=== PATIENT | male | born 1960 | race Caucasian/White ===

== ENCOUNTER 2021-02-19 10:23 | Outpatient (CLI) | payer BC, OTHER ==
[2021-02-20 01:30] LABS: SARS-CoV-2 PCR by NAA Not Detected (NotDetected)
== END 2021-02-19 10:24 | disposition home or self-care (01) ==
LOC: CSHLAB 10:23
PROVIDERS: ATTEND Internal Medicine Pulmonary Disease
DX: Z20.822 Contact with and (suspected) exposure to COVID-19 (principal)
CPT/HCPCS: U0003; U0005

== ENCOUNTER 2021-09-01 09:56 | Outpatient (CLI) | payer OTHER | END 2021-09-01 09:57 | disposition home or self-care (01) | LOC: CSHRAD 09:56 | PROVIDERS: ATTEND Chiropractor | DX: M19.90 Unspecified osteoarthritis, unspecified site (principal); M19.071 Primary osteoarthritis, right ankle and foot ==

== ENCOUNTER 2021-10-28 09:11 | Outpatient (CLI) | payer BC ==
[2021-10-28 23:14] LABS: SARS-CoV-2 PCR by NAA Not Detected (NotDetected)
== END 2021-10-28 09:12 | disposition home or self-care (01) ==
LOC: CSHLAB 09:11
PROVIDERS: ATTEND Internal Medicine
DX: Z20.822 Contact with and (suspected) exposure to COVID-19 (principal)
CPT/HCPCS: U0003; U0005

== ENCOUNTER 2021-11-02 07:57 | Outpatient (CLI) | payer BC | END 2021-11-02 07:58 | disposition home or self-care (01) | LOC: CSHCT 07:57 | PROVIDERS: ATTEND Internal Medicine | DX: J84.9 Interstitial pulmonary disease, unspecified (principal); J84.10 Pulmonary fibrosis, unspecified; R94.2 Abnormal results of pulmonary function studies | CPT/HCPCS: 71250; 94010; 94726; 94729; 94760 ==

== ENCOUNTER 2023-04-05 15:06 | Outpatient (CLI) | payer OTHER | END 2023-04-05 15:07 | disposition home or self-care (01) | LOC: CSHCP 15:06 | PROVIDERS: ATTEND Internal Medicine | DX: J84.9 Interstitial pulmonary disease, unspecified (principal); J98.4 Other disorders of lung | CPT/HCPCS: 94010; 94726; 94729; 94760 ==

== ENCOUNTER 2023-05-10 09:31 | Outpatient (CLI) | payer OTHER | END 2023-05-10 09:32 | disposition home or self-care (01) | LOC: CSHCT 09:31 | PROVIDERS: ATTEND Internal Medicine | DX: J61 Pneumoconiosis due to asbestos and other mineral fibers (principal) | CPT/HCPCS: 71250 ==

== ENCOUNTER 2025-02-26 10:14 | Outpatient (CLI) | payer OTHER | END 2025-02-26 10:15 | disposition home or self-care (01) | LOC: CSHCP 10:14 | PROVIDERS: ATTEND Internal Medicine | DX: J84.10 Pulmonary fibrosis, unspecified (principal) | CPT/HCPCS: 94060; 94664; 94726; 94729; 94760 ==